=== PATIENT | male | born 1990 | race Caucasian/White ===

== ENCOUNTER 2017-04-03 18:36 | Emergency (ER) | payer SELFPAY | END 2017-04-03 18:56 | disposition home or self-care (01) | LOC: ER 18:36 | DX: J32.9 Chronic sinusitis, unspecified (principal); R05 Cough; R51 Headache; F17.210 Nicotine dependence, cigarettes, uncomplicated; Z88.0 Allergy status to penicillin; Z88.1 Allergy status to other antibiotic agents; Z88.8 Allergy status to other drugs, medicaments and biological substances | CPT/HCPCS: 99282 ==